=== PATIENT | male | born 1985 | race African-American/Black ===

== ENCOUNTER 2023-10-29 02:45 | Inpatient (IN) | payer SELFPAY ==
[~2023-10-29] VITALS: Ht 165.1 cm; Wt 95.8 kg
[2023-10-29] MEDS: SODIUM CHLORIDE 0.9% 1,000 ML IV ONE ×2 (03:30→07:34)
[2023-10-29 03:51] LABS: BASOPHILS % 0.5 % (0.0-2.0); EOSINOPHILS % 0.1 % (0.0-5.0); HEMATOCRIT. 46.9 % (42.0-52.0); HEMOGLOBIN. 16.1 g/dL (14.0-18.0); LYMPHOCYTES % 17.6 % (20.0-50.0); MEAN CORPUSCULAR HEMOGLOBIN 30.9 pg (28.0-32.0); MEAN CORPUSCULAR HGB CONC 34.3 g/dL (31.0-37.0); MEAN PLATELET VOLUME 9.1 fl (7.4-10.4); MONOCYTES % 7.3 % (2.0-8.0); NEUTROPHILS % 74.5 % (40.0-76.0); PLATELET 353 x1000/uL (130-400); RED BLOOD CELL COUNT 5.21 mill/uL (4.7-6.1); RED CELL DISTRIBUTION WIDTH 13.6 % (11.6-14.6); WHITE BLOOD COUNT 10.7 x1000/uL (4.5-11.0)
[2023-10-29 03:56] LABS: PROTHROMBIN TIME 11.5 sec (9.6-11.0)
[2023-10-29 04:04] LABS: ALANINE AMINOTRANSFERASE 33 IU/L (10-49); ALBUMIN 5.3 g/dL (3.2-4.8); ASPARTATE AMINOTRANSFERASE 27 IU/L (<34); BILIRUBIN TOTAL 1.4 mg/dL (0.1-1.0); CALCIUM 9.7 mg/dL (8.7-10.4); CARBON DIOXIDE 24 mEq/L (21-32); CHLORIDE 104 mEq/L (98-107); CREATININE 1.2 mg/dL (0.6-1.3); GLUCOSE 132 mg/dL (70-105); LACTIC ACID 2.2 mmol/L (0.4-2.0); POTASSIUM 3.8 mEq/L (3.5-5.1); PROTEIN TOTAL 9.5 g/dL (6.0-8.3); SODIUM 138 mEq/L (136-145); UREA NITROGEN BLOOD 14 mg/dL (9-23)
[2023-10-29 04:05] LABS: ETHANOL BLOOD < 10 mg/dL (<10)
[2023-10-29] MEDS: KETOROLAC 30MG/ML VIAL IV STA (05:01)
[2023-10-29] MEDS: KETOROLAC 30MG/ML VIAL IV NR (05:02)
[2023-10-29] MEDS: ONDANSETRON HCL 4MG/2ML INJ IV STA (05:02)
[2023-10-29] MEDS: ONDANSETRON HCL 4MG/2ML INJ IV NR (05:05)
[2023-10-29] MEDS: IOHEXOL-300 100 ML BOTTLE ONE (07:34)
[2023-10-29 09:40] VITALS: BP 104/58; PULSE 73; RESP 19; TEMP 96.4
[2023-10-29] MEDS ORDERED: ONDANSETRON HCL 4MG/2ML INJ IV PRN (10:30)
[2023-10-29] MEDS: PANTOPRAZOLE SODIUM 40 MG/VIAL IV SCH (11:00)
[2023-10-29 20:00] VITALS: BP 119/82; PULSE 78; RESP 18; TEMP 99.3
[2023-10-30] VITALS: BP 108/68; PULSE 76; RESP 18; TEMP 99
[2023-10-30 04:00] VITALS: BP 109/52; PULSE 82; RESP 18; TEMP 98.2
[2023-10-30 08:00] VITALS: BP 112/71; PULSE 79; RESP 20; TEMP 97.5
[2023-10-30 12:00] VITALS: BP 118/69; PULSE 82; RESP 19; TEMP 98.1
[2023-10-30] MEDS: KETOROLAC 30MG/ML VIAL IV PRN (15:19)
[2023-10-30 16:00] VITALS: BP 116/83; PULSE 80; RESP 19; TEMP 98.1
[2023-10-30 20:00] VITALS: BP 123/79; PULSE 89; RESP 20; TEMP 97.9
[2023-10-31] VITALS: BP 119/59; PULSE 79; RESP 20; TEMP 97.8
[2023-10-31 08:00] VITALS: BP 114/66; PULSE 85; RESP 19; TEMP 97.9
[2023-10-31 14:24] VITALS: BP 122/75; PULSE 88; TEMP 97.7; O2SAT 96
[2023-11-01] MEDS ORDERED: FAMOTIDINE 20MG/2ML VIAL IV SCH (09:00)
[2023-11-01] MEDS ORDERED: IOHEXOL-300 100 ML BOTTLE ONE (14:05)
== END 2023-10-31 15:20 | disposition home or self-care (01) | DRG 247 ==
LOC: ER 02:45 → 6EST 06:58 → EDBEDREQTM 07:18 → EDBEDREQ 07:18
PROVIDERS: ADMIT Internal Medicine; ATTEND Internal Medicine
DX: K56.699 Other intestinal obstruction unspecified as to partial versus complete obstruction (principal); E66.9 Obesity, unspecified; Z68.35 Body mass index [BMI] 35.0-35.9, adult; Z79.899 Other long term (current) drug therapy
CPT/HCPCS: 36415; 74018; 74177; 80053; 80320; 83605; 84145; 85025; 99285; C9113; J1885; J2405; J7030; Q9967; G0480